=== PATIENT | female | born 1940 | race Asian ===

== ENCOUNTER 2016-10-07 09:04 | Emergency (ER) | payer MEDICAID, MEDICARE ==
[~2016-10-07] VITALS: Ht 157.5 cm; Wt 54.5 kg
[~2016-10-07 09:04] MED LIST: NOCURR; PANT40TA PO
[2016-10-07] MEDS ORDERED: HYDROCODONE/ACETAMINOPHEN 5-325 MG TABLET PO ONE (10:15)
[2016-10-07 12:40] VITALS: BP 161/83
== END 2016-10-07 12:53 | disposition home or self-care (01) ==
LOC: EMS 09:06
DX: M51.36 Other intervertebral disc degeneration, lumbar region (principal); M43.9 Deforming dorsopathy, unspecified
CPT/HCPCS: 74176; 99284

== ENCOUNTER 2016-10-09 09:11 | Emergency (ER) | payer MEDICARE ==
[~2016-10-09] VITALS: Ht 157.5 cm; Wt 54.5 kg
[2016-10-09 11:08] LABS: BASOPHILS % (AUTO) 0.9 % (0.0-2.0); EOSINOPHILS % (AUTO) 1.9 % (1.0-6.0); HEMATOCRIT 39.6 % (36-46); HEMOGLOBIN 13.6 g/dL (12.0-16.0); LYMPHOCYTES # (AUTO) 1.4 K/uL (1.0-4.8); LYMPHOCYTES % (AUTO) 21.4 % (22.0-44.0); MEAN CORPUSCULAR HEMOGLOBIN 30.9 pg (26.0-34.0); MEAN CORPUSCULAR HGB CONC 34.5 G/dL (31.0-37.0); MEAN CORPUSCULAR VOLUME 90 fL (80-100); MONOCYTES # (AUTO) 0.3 K/uL (0.1-1.0); MONOCYTES % (AUTO) 4.5 % (2.0-9.0); NEUTROPHILS # (AUTO) 4.5 K/uL (1.8-7.7); NEUTROPHILS % (AUTO) 71.3 % (40.0-70.0); PLATELET COUNT (AUTO) 338 K/uL (150-450); RED BLOOD CELL COUNT(AUTO) 4.41 MIL/uL (4.00-5.20); RED CELL DISTRIBUTION WIDTH 13.5 % (11.5-14.5); WHITE BLOOD COUNT (AUTO) 6.4 K/uL (4.5-11.0)
[2016-10-09 11:12] LABS: APPEARANCE,URINE CLEAR (CLEAR); GLUCOSE, URINE (UA) NEGATIVE (NEGATIVE); KETONES,URINE NEGATIVE (NEGATIVE); LEUKOCYTE ESTERASE ,URINE NEGATIVE (NEGATIVE); OCCULT BLOOD,URINE SMALL (NEGATIVE); PROTEIN,URINE NEGATIVE (NEGATIVE)
[2016-10-09] MEDS ORDERED: KETOROLAC TROMETHAMINE 30 MG/ML VIAL IVP ONE (11:15)
[2016-10-09 11:19] LABS: SQUAMOUS EPITHELIAL CELL,UR Rare /LPF (None Seen); WBC,URINE None Seen /HPF (0-5)
[2016-10-09 11:27] LABS: ANION GAP 10 mmol/L (8-16); CALCIUM, TOTAL 9.1 mg/dL (8.8-10.5); CARBON DIOXIDE 27 mmol/L (22-29); CHLORIDE 104 mmol/L (98-107); CREATININE 0.61 mg/dL (0.60-1.30); GLOMERULAR FILTR. RATE CALC > 60 mL/min (>60); POTASSIUM 3.8 mmol/L (3.5-5.1); SODIUM SERUM 141 mmol/L (136-145); UREA NITROGEN, BLOOD 13 mg/dL (7-18)
[2016-10-09 11:33] LABS: ALANINE AMINOTRANSFERASE 20 U/L (12-78); ALBUMIN 4.1 g/dL (3.4-5.0); ASPARTATE AMINOTRANSFERASE 20 U/L (15-37); BILIRUBIN,TOTAL 0.5 mg/dL (0.1-1.0); TOTAL PROTEIN, SERUM 8.1 g/dL (6.4-8.2)
[2016-10-09 12:23] VITALS: BP 150/89
== END 2016-10-09 12:45 | disposition home or self-care (01) ==
LOC: EMS 09:14
DX: T39.1X5A Adverse effect of 4-Aminophenol derivatives, initial encounter (principal); M54.5 Low back pain; R11.2 Nausea with vomiting, unspecified; Y92.89 Other specified places as the place of occurrence of the external cause
CPT/HCPCS: 36415; 80053; 81001; 83690; 85025; 96374; 99284; J1885

== ENCOUNTER 2020-08-29 17:37 | Emergency (ER) | payer MEDICARE, OTHER ==
[~2020-08-29] VITALS: Ht 157.5 cm; Wt 63.6 kg
[2020-08-29] MEDS ORDERED: ACETAMINOPHEN 500 MG TABLET PO ONE (18:15)
[2020-08-29] MEDS ORDERED: LIDOCAINE 5% TRANSDERMAL PATCH TD ONE (18:15)
[2020-08-29 19:53] VITALS: BP 156/112
== END 2020-08-29 20:29 | disposition home or self-care (01) ==
LOC: EMS 17:39
DX: M25.562 Pain in left knee (principal); M25.462 Effusion, left knee; R60.0 Localized edema; E78.00 Pure hypercholesterolemia, unspecified; I10 Essential (primary) hypertension
CPT/HCPCS: 99283

== ENCOUNTER 2023-12-05 14:27 | Emergency (ER) | payer OTHER ==
[~2023-12-05] VITALS: Ht 154.9 cm; Wt 56.8 kg
[2023-12-05] MEDS ORDERED: AMLO5TAB66 PO (14:40)
[2023-12-05] MEDS ORDERED: ATOR10TA69 PO (14:40)
[2023-12-05] MEDS ORDERED: CARV6.2534 PO (14:40)
[2023-12-05] MEDS ORDERED: OLME40TA18 PO (14:40)
[2023-12-05] MEDS: HYDROCODONE/ACETAMINOPHEN 5-325 MG TABLET PO ONE (15:20)
[2023-12-05 17:00] VITALS: BP 170/78; PULSE 74; RESP 16; TEMP 98.3; O2SAT 98
[2023-12-05] MEDS ORDERED: HYDR-4062 PO (17:01)
== END 2023-12-05 17:21 | disposition home or self-care (01) ==
LOC: EMS 14:59
DX: S42.412A Displaced simple supracondylar fracture without intercondylar fracture of left humerus, initial encounter for closed fracture (principal); S52.612A Displaced fracture of left ulna styloid process, initial encounter for closed fracture; I10 Essential (primary) hypertension; W01.0XXA Fall on same level from slipping, tripping and stumbling without subsequent striking against object, initial encounter; Y93.89 Activity, other specified; Y92.89 Other specified places as the place of occurrence of the external cause; Y99.0 Civilian activity done for income or pay
CPT/HCPCS: 99284

== ENCOUNTER 2023-12-20 10:38 | Emergency (ER) | payer OTHER, MEDICARE ==
[~2023-12-20] VITALS: Ht 160 cm; Wt 63.6 kg
[~2023-12-20 10:38] MED LIST changes: +AMLO5TAB66 PO; +ATOR10TA69 PO; +CARV6.2534 PO; +HYDR-4062 PO; -NOCURR; +OLME40TA18 PO; -PANT40TA PO
[2023-12-20 10:48] VITALS: TEMP 98.2
[2023-12-20 14:24] VITALS: BP 147/92; PULSE 75; RESP 18; O2SAT 98
[2023-12-20] MEDS ORDERED: IBUP-45 PO (15:02)
[2023-12-20] MEDS ORDERED: ACET-2080 PO (15:03)
[2023-12-20] MEDS: IBUPROFEN 200 MG TABLET PO ONE (15:41)
[2023-12-20] MEDS: ACETAMINOPHEN/CODEINE 300-30 MG TABLET PO ONE (15:42)
== END 2023-12-20 16:02 | disposition home or self-care (01) ==
LOC: EMS 10:38
DX: S42.412A Displaced simple supracondylar fracture without intercondylar fracture of left humerus, initial encounter for closed fracture (principal); S52.512A Displaced fracture of left radial styloid process, initial encounter for closed fracture; I10 Essential (primary) hypertension; W19.XXXA Unspecified fall, initial encounter; Y93.89 Activity, other specified; Y92.89 Other specified places as the place of occurrence of the external cause; Y99.0 Civilian activity done for income or pay
CPT/HCPCS: 73200; 99284